=== PATIENT | male | born 1995 | race African-American/Black ===

== ENCOUNTER → 2017-01-09 | Outpatient (CLI) | payer BC, OTHER ==
--- NOTE | 2017-01-09 08:12 | DIAGNOSTIC IMAGING REPORT ---
MRI OF THE RIGHT KNEE WITHOUT CONTRAST CLINICAL HISTORY: Right knee pain. Previous ACL reconstruction. Evaluate for medial meniscal tear. COMPARISON STUDY: MRI of the right knee September 11, 2014. TECHNIQUE: Utilizing a 1.5 Lenore magnet and dedicated coil, multiplanar, multiecho imaging of the right knee was performed without intravenous or intraarticular contrast. FINDINGS: There are postsurgical findings consistent with an ACL reconstruction. The graft is suboptimally assessed on this exam but appears intact and similar in appearance to exam of September 11, 2014. There is a moderate size right knee joint effusion which contains multiple small loose bodies. The posterior cruciate ligament is intact. The lateral collateral ligament complex and medial collateral ligament are intact. There is a markedly abnormal appearance of the body and posterior horn of the lateral meniscus. A large portion of the meniscus is not visualized on this exam. This is similar in appearance to exam of September 11, 2014. Evaluation is compromised due to susceptibility artifact from surgical material and hardware. There is a complex tear involving the posterior horn, body and anterior horn of the medial meniscus. The degree of apparent tear is increased since exam of September 11, 2014. 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 There is moderate chondrosis within the patellofemoral compartment as well as mild chondrosis within the lateral compartment which is similar to prior exam. There is a small popliteal cyst. IMPRESSION: 1. Status post ACL reconstruction. Graft suboptimally visualized but likely intact. 2. Markedly abnormal appearance of the body and the posterior horn of the lateral meniscus which is similar in appearance to exam of September 11, 2014. This could be postsurgical or reflect a chronic tear. 3. Complex apparent tear of the medial meniscus which is increased since exam September 11, 2014. This could reflect an interval tear or postsurgical change. 4. Moderate joint effusion which contains multiple small loose bodies. 5. 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 Electronically signed by: Michael Vásquez M.D. 01/09/2017 8:10 AM Dictated Date/Time: 01/09/2017 7:59 AM
== END | disposition home or self-care (01) ==
LOC: C.MRI 06:21
PROVIDERS: ATTEND Orthopaedic Surgery
DX: M25.561 Pain in right knee (principal); M25.461 Effusion, right knee; M23.41 Loose body in knee, right knee